=== PATIENT | female | born 1995 | race Caucasian/White ===

== ENCOUNTER 2017-12-02 01:05 | Emergency (ER) | payer OTHER, MEDICAID ==
[2017-12-02 01:10] VITALS: RESP 20; TEMP 98.4
--- NOTE | 2017-12-02 01:13 | EDPHY ---
H & P Stated Complaint: "heart racing" post energy drink and ETOH Time Seen by Provider: 12/02/17 01:10 HPI/ROS: HPI CHIEF COMPLAINT: Heart racing, anxiety HISTORY OF PRESENT ILLNESS: Patient is a 22-year-old female, denies having any significant medical history presents emergency room stating that she feels very anxious and that her heart is racing. She reports to me that she drank a large amount of alcohol over the weekend. She states she thinks she had an entire 5th of [employer] [place]. She stop drinking earlier yesterday. She distally had some Red Bulls. She states that she feels very anxious and that her heart is racing. She has not had any vomiting or diarrhea. She denies any chest pain. Decided come the emergency room as approximately an hour ago she felt palpitations and felt her heart racing and feels anxious. Past Medical History: Denies significant medical history Past Surgical History: Denies significant surgical history Social History: Binge drink alcohol this weekend, marijuana use, denies illicit drugs. Family History: Noncontributory ROS REVIEW OF SYSTEMS: A comprehensive 10 point review of systems is otherwise negative aside from elements mentioned in the history of present illness. Exam Constitutional anxious triage nursing summary reviewed, vital signs reviewed, awake/alert. Heart rate noted to be tachycardic. Eyes normal conjunctivae and sclera, EOMI, PERRLA. HENT normal inspection, atraumatic, moist mucus membranes, no epistaxis, neck supple/ no meningismus, no raccoon eyes. Respiratory clear to auscultation bilaterally, normal breath sounds, no respiratory distress, no wheezing. Cardiovascular tachycardic regular rhythm, no murmur, no edema, distal pulses normal. Gastrointestinal soft, non-tender, no rebound, no guarding, normal bowel sounds, no distension, no pulsatile mass. Genitourinary no CVA tenderness. Musculoskeletal no midline vertebral tenderness, full range of motion, no calf swelling, no tenderness of extremities, no meningismus, good pulses, neurovascularly intact. Skin pink, warm, & dry, no rash, skin atraumatic. Neurologic anxious awake, alert and oriented x 3, AAOx3, moves all 4 extremities equally, motor intact, sensory intact, CN II-XII intact, normal cerebellar, normal vision, normal speech. Psychiatric ankle Heme/Lymph/Immune no lymphadenopathy. Differential Diagnosis: Includes but is not limited to in a particular order acute anxiety, panic attack, dehydration, electrolyte disturbance, alcohol abuse Medical Decision Making: Plan for this patient IV establishment IV fluid bolus 2 L normal saline, IV Ativan 1 mg for anxiety, check electrolytes, re-evaluate. Obtain EKG. Re-evaluation: EKG interpretation by me on record in [employer] system. Impression time of EKG 1:26 a.m., sinus tachycardia rate of 111, ST depression noted anterior lateral leads. Most likely rate-related. No ST elevation. Drug screen positive for cocaine. 0529: Patient re-evaluated this time resting comfortably no acute distress. Heart rate is currently 104. Drug screen reviewed and positive for cocaine. This is most likely the cause of her anxiety and tachycardia. She has no chest pain or shortness of breath this time and she is resting comfortably. Infectious been sleeping. She received 3 L of fluid here in the emergency room and 2 mg IV Ativan. Much improved. She is eager to be discharged in feels well. Return precautions discussed. Additionally recommend staying away from cocaine or other illicit drugs. She understands Source: Patient - Personal History LMP (Females 10-55): Now Current Tetanus/Diphtheria Vaccine: Unsure - Medical/Surgical History Hx Asthma: No Hx Chronic Respiratory Disease: No Hx Diabetes: No Hx Cardiac Disease: No Hx Renal Disease: No Hx Cirrhosis: No Hx Alcoholism: No Hx HIV/AIDS: No Hx Splenectomy or Spleen Trauma: No Other PMH: anxiety - Social History Smoking Status: Never smoked Constitutional: Initial Vital Signs Temperature (C) 36.9 C 12/02/17 01:06 Heart Rate 132 H 12/02/17 01:06 Respiratory Rate 20 12/02/17 01:06 Blood Pressure 132/109 H 12/02/17 01:06 O2 Sat (%) 100 12/02/17 01:06 O2 Delivery Mode Room Air Allergies/Adverse Reactions: No Known Allergies Allergy (Unverified 12/02/17 01:09) Home Medications: Medication Instructions Recorded NK [No Known Home Meds] 12/02/17 Medical Decision Making - Data Points Laboratory Results: Laboratory Results 12/02/17 01:30 12/02/17 01:30 12/02/17 12/02/17 12/02/17 01:33 01:30 01:30 WBC RBC Hgb Hct MCV MCH MCHC RDW Plt Count MPV Neut % (Auto) Lymph % (Auto) [place] % (Auto) Eos % (Auto) Baso % (Auto) Nucleat RBC Rel Count Absolute Neuts (auto) Absolute Lymphs (auto) Absolute Monos (auto) Absolute Eos (auto) Absolute Basos (auto) Absolute Nucleated RBC Immature Gran % Immature Gran # D-Dimer < 0.27 ug/mLFEU ug/mLFEU (0.00-0.50) Sodium 140 mEq/L mEq/L (135-145) Potassium 3.8 mEq/L mEq/L (3.5-5.2) Chloride 104 mEq/L mEq/L (97-110) Carbon Dioxide 18 mEq/l L mEq/l (22-31) Anion Gap 18 mEq/L H mEq/L (8-16) BUN 10 mg/dL mg/dL (7-23) Creatinine 0.6 mg/dL mg/dL (0.6-1.0) Estimated GFR > 60 Glucose 106 mg/dL H mg/dL (70-100) Calcium 9.2 mg/dL mg/dL (8.5-10.4) Magnesium 1.5 mg/dL L mg/dL (1.6-2.3) Troponin I < 0.012 ng/mL ng/mL (0.000-0.034) Urine Opiates Screen NEGATIVE (NEGATIVE) Urine Barbiturates NEGATIVE (NEGATIVE) Ur Phencyclidine Scrn NEGATIVE (NEGATIVE) Ur Amphetamine Screen NEGATIVE (NEGATIVE) U Benzodiazepines Scrn NEGATIVE (NEGATIVE) Urine Cocaine Screen NON-NEGATIVE H (NEGATIVE) U Marijuana (THC) Screen NON-NEGATIVE H (NEGATIVE) Ethyl Alcohol < 10 mg/dL mg/dL (0-10) 12/02/17 01:30 WBC 6.92 10^3/uL 10^3/uL (3.80-9.50) RBC 4.62 10^6/uL 10^6/uL (4.18-5.33) Hgb 14.7 g/dL g/dL (12.6-16.3) Hct 41.3 % % (38.0-47.0) MCV 89.4 fL fL (81.5-99.8) MCH 31.8 pg pg (27.9-34.1) MCHC 35.6 g/dL g/dL (32.4-36.7) RDW 13.3 % % (11.5-15.2) Plt Count 240 10^3/uL 10^3/uL (150-400) MPV 9.5 fL fL (8.7-11.7) Neut % (Auto) 58.2 % % (39.3-74.2) Lymph % (Auto) 27.5 % % (15.0-45.0) [place] % (Auto) 9.1 % % (4.5-13.0) Eos % (Auto) 4.0 % % (0.6-7.6) Baso % (Auto) 0.9 % % (0.3-1.7) Nucleat RBC Rel Count 0.0 % % (0.0-0.2) Absolute Neuts (auto) 4.03 10^3/uL 10^3/uL (1.70-6.50) Absolute Lymphs (auto) 1.90 10^3/uL 10^3/uL (1.00-3.00) Absolute Monos (auto) 0.63 10^3/uL 10^3/uL (0.30-0.80) Absolute Eos (auto) 0.28 10^3/uL 10^3/uL (0.03-0.40) Absolute Basos (auto) 0.06 10^3/uL 10^3/uL (0.02-0.10) Absolute Nucleated RBC 0.00 10^3/uL 10^3/uL (0-0.01) Immature Gran % 0.3 % % (0.0-1.1) Immature Gran # 0.02 10^3/uL 10^3/uL (0.00-0.10) D-Dimer Sodium Potassium Chloride Carbon Dioxide Anion Gap BUN Creatinine Estimated GFR Glucose Calcium Magnesium Troponin I Urine Opiates Screen Urine Barbiturates Ur Phencyclidine Scrn Ur Amphetamine Screen U Benzodiazepines Scrn Urine Cocaine Screen U Marijuana (THC) Screen Ethyl Alcohol Medications Given: Discontinued Medications Sodium Chloride (Ns) 1,000 mls @ 0 mls/hr IV EDNOW ONE; Wide Open PRN Reason: Protocol Stop: 12/02/17 01:14 Last Admin: 12/02/17 01:29 Dose: 1,000 mls Sodium Chloride (Ns) 1,000 mls @ 0 mls/hr IV ONCE ONE PRN Reason: Wide Open Stop: 12/02/17 01:18 Last Admin: 12/02/17 01:32 Dose: 1,000 mls Sodium Chloride (Ns) 1,000 mls @ 0 mls/hr IV ONCE ONE PRN Reason: Wide Open Stop: 12/02/17 03:30 Last Admin: 12/02/17 03:32 Dose: 1,000 mls Lorazepam (Ativan Injection) 1 mg IVP EDNOW ONE Stop: 12/02/17 01:15 Last Admin: 12/02/17 01:29 Dose: 1 mg Lorazepam (Ativan Injection) 1 mg IVP EDNOW ONE Stop: 12/02/17 03:29 Last Admin: 12/02/17 03:32 Dose: 1 mg Departure - Departure Disposition: Home, Routine, Self-Care Clinical Impression: Cocaine abuse Condition: Good Instructions: Cocaine Abuse (ED) Referrals: NONE *PRIMARY CARE P,. [Primary Care Provider] - As per Instructions
[2017-12-02] MEDS ORDERED: LORazepam 2 MG/ML INJ IVP ONE ×2 (01:14→03:28)
[2017-12-02] MEDS ORDERED: NS 1,000 ML IV ONE ×2 (01:17→03:29)
[2017-12-02] MEDS: NS 1,000 ML IV ONE (01:29)
[2017-12-02 01:38] LABS: PLATELET COUNT 240 10^3/uL (150-400)
[2017-12-02 03:34] VITALS: BP 119/78; PULSE 96; O2SAT 97
--- NOTE | 2017-12-02 13:08 | CPEKG ---
Heart Rate: 111 RR Interval: 541 P-R Interval: 108 QRSD Interval: 134 QT Interval: 364 QTC Interval: 495 P [place]: 136 QRS [place]: -12 T Wave [place]: 99 EKG Severity - ABNORMAL ECG - EKG Impression: SINUS OR ECTOPIC ATRIAL TACHYCARDIA EKG Impression: NONSPECIFIC INTRAVENTRICULAR CONDUCTION DELAY EKG Impression: PROBABLE LVH WITH SECONDARY REPOL ABNRM EKG Impression: ST DEPRESSION, CONSIDER ISCHEMIA, ANT-LAT LDS Electronically Signed By: Jamie Cespedes 02-Dec-2017 21:33:54
== END 2017-12-02 05:40 | disposition home or self-care (01) ==
DX: F14.10 Cocaine abuse, uncomplicated (principal); E86.9 Volume depletion, unspecified
CPT/HCPCS: 80305; 96374; G0480; J2060

== ENCOUNTER 2018-04-08 21:01 | Emergency (ER) | payer MEDICAID, OTHER ==
[2018-04-08] MEDS ORDERED: IBUPROFEN 600 MG TAB PO ONE ×2 (21:27→21:47)
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
[2018-04-08 22:30] VITALS: BP 133/77
== END 2018-04-08 22:30 | disposition home or self-care (01) ==
DX: S60.222A Contusion of left hand, initial encounter (principal); V43.52XA Car driver injured in collision with other type car in traffic accident, initial encounter; Y92.410 Unspecified street and highway as the place of occurrence of the external cause; Y99.8 Other external cause status; Y93.89 Activity, other specified
CPT/HCPCS: L3925; L4350